=== PATIENT | female | born 1950 | race Caucasian/White ===

== ENCOUNTER 2018-02-26 11:28 | Emergency (ER) | payer MEDICARE, MEDICAID ==
[~2018-02-26] VITALS: Ht 157.5 cm; Wt 63.6 kg
[~2018-02-26 11:28] MED LIST: ACYC-202 PO; ASPI-611 PO; CALC-793 PO; CALCIUM PO; CARI350T PO; CYAN-19 PO; DEXL60CA3 PO; ESTR2TAB7 PO; HYDR10TA PO; IBUP-1986 PO; LACT1CAP65 PO; LEVO75TA57 PO; LIOT25TA8 PO; MAGNESIUM PO; METH-603 PO; OLME20TA15 PO; OMEG1CAP PO; PRAS25CA7 PO; PROG200C16 PO; SELE200T25 PO; SOLI5TAB2 PO; TEST200V10 IM; TUMERIC PO; VITE1000C PO
[2018-02-26 11:46] VITALS: BP 123/81
[2018-02-26 12:19] LABS: BASOPHILS % (AUTO) 0.3 % (0-1); EOSINOPHILS # (AUTO) 0.1 X10'3 (0-0.9); EOSINOPHILS % (AUTO) 1.9 % (0-6); HEMATOCRIT 40.4 % (35.0-45.0); HEMOGLOBIN 14.1 g/dl (12.0-16.0); LYMPHOCYTES % (AUTO) 32.4 % (21-51); MEAN CORPUSCULAR HGB CONC 34.7 % (33.0-36.5); MEAN CORPUSCULAR VOLUME 89.3 FL (78-98); MEAN PLATELET VOLUME 7.7 FL (7.4-10.4); MONOCYTES # (AUTO) 0.4 X10'3 (0-0.9); MONOCYTES % (AUTO) 6.8 % (2-12); NEUTROPHILS # (AUTO) 3.7 X10'3 (1.8-7.7); NEUTROPHILS % (AUTO) 58.6 % (42-75); PLATELET COUNT 213 X10'3 (140-440); RED BLOOD COUNT 4.53 X10'6 (4.20-5.60); RED CELL DISTRIBUTION WIDTH 12.6 % (11.5-14.5); WHITE BLOOD COUNT 6.2 X10'3 (4.5-11.0)
[2018-02-26 12:31] LABS: PARTIAL THROMBOPLASTIN TIME 27 SECONDS (22-32)
[2018-02-26] MEDS ORDERED: HYDROmorphone 2mg tablet PO ONE (12:50)
[2018-02-26 13:43] LABS: ALANINE AMINOTRANSFERASE 34 U/L (12-78); ALBUMIN/GLOBULIN RATIO 1.1 (1.1-1.5); ALKALINE PHOSPHATASE 69 IU/L (46-116); ANION GAP 13 (8-16); ASPARTATE AMINO TRANSFERASE 19 U/L (10-37); BILIRUBIN,TOTAL 0.4 MG/DL (0.1-1.0); BLOOD UREA NITROGEN 22 MG/DL (7-18); CALCIUM 9.4 MG/DL (8.5-10.1); CHLORIDE 102 MMOL/L (99-107); GLUCOSE 108 MG/DL (70-104); POTASSIUM 3.7 MMOL/L (3.5-5.1); SODIUM 140 MMOL/L (135-145); TOTAL CARBON DIOXIDE 24.7 MMOL/L (24-32); TOTAL PROTEIN 7.6 G/DL (6.4-8.2); eGFR 49 ML/MIN
[2018-02-26] MEDS ORDERED: HYDR-4353 PO (14:24)
[2018-02-26] MEDS ORDERED: NAPR-56 PO (14:24)
[2018-02-26] MEDS ORDERED: dexamethasone 4mg tablet PO ONE (14:25)
[2018-02-26] MEDS ORDERED: naproxen 500mg tablet PO ONE (14:25)
[2018-02-26] MEDS ORDERED: oxyCODONE/APAP 10/325mg tablet PO ONE (15:00)
[2018-02-26] MEDS ORDERED: PER10325T PO (15:02)
== END 2018-02-26 15:39 | disposition home or self-care (01) ==
LOC: ER 11:28
DX: S22.059A Unspecified fracture of T5-T6 vertebra, initial encounter for closed fracture (principal); I10 Essential (primary) hypertension; G89.29 Other chronic pain; Z88.6 Allergy status to analgesic agent; Z88.5 Allergy status to narcotic agent; Z88.8 Allergy status to other drugs, medicaments and biological substances; Z79.82 Long term (current) use of aspirin; Z79.899 Other long term (current) drug therapy; X58.XXXA Exposure to other specified factors, initial encounter; Y93.89 Activity, other specified; Y92.89 Other specified places as the place of occurrence of the external cause; Y99.8 Other external cause status
CPT/HCPCS: 36415; 71045; 72128; 80053; 84484; 85025; 85610; 85730; 93005; 99284; J8540

== ENCOUNTER 2018-10-14 15:15 | Outpatient (CLI) | payer MEDICARE, MEDICAID ==
[~2018-10-14 15:15] MED LIST changes: -CYAN-19 PO; +CYAN-51 PO; +LIOT25TA12 PO; -LIOT25TA8 PO
[2018-10-14 15:50] LABS: TOTAL HEMOGLOBIN 14.1 G/dl (12.0-16.0)
== END 2018-10-14 23:59 | disposition home or self-care (01) ==
LOC: RT 15:15
PROVIDERS: ATTEND Internal Medicine Cardiovascular Disease
DX: S27.309A Unspecified injury of lung, unspecified, initial encounter (principal); J84.112 Idiopathic pulmonary fibrosis; X58.XXXA Exposure to other specified factors, initial encounter; Y93.89 Activity, other specified; Y92.89 Other specified places as the place of occurrence of the external cause; Y99.8 Other external cause status
CPT/HCPCS: 85018; 94010; 94727; 94729